=== PATIENT | female | born 1995 | race Two or more races ===

== ENCOUNTER → 2019-01-18 | Outpatient (CLI) | payer OTHER ==
[~2019-01-18] MED LIST: OMEP20TA63 PO
--- NOTE | 2019-01-18 23:47 | PAIN ---
DATE OF SERVICE: 01/18/2019 INITIAL CONSULTATION FOR PAIN CLINIC CHIEF COMPLAINT: Low back pain, bilateral lower extremity pain. HISTORY OF PRESENT ILLNESS: This is a 23-year-old female who presents with history of pain in the low back and into the posterior gluteus and hips for several years. She fell down some stairs many years ago, she reports about 6 or 8 years ago, has had pain ever since and now worse with walking, standing, change in positions, especially with standing and walking more than about 10-15 minutes. She has to stop and sit down, which does not always decrease the pain. The patient reports that when she is sitting for more than 15-20 minutes, it does increase the pain as well across the low back, but essentially right equal to left. She leans forward a lot, which does decrease the pain with forward flexion, but otherwise is waking her from sleep at least 5 or 6 times at night, right equal to left with lying on one side or the other. It does not affect her bowel or bladder control, but does affect her ability to walk fairly significantly for about 10-15 minutes all that she can manage before stopping to sit and rest. The patient reports the pain is constant, sharp, throbbing, shooting across the low back, cramping and aching, radiating into the posterior gluteus, posterior thighs, also into the groins at times. The patient has tried hydrocodone as well as a trigger shot injection, which did not decrease the pain significantly either one of these. The patient has had some chiropractic treatment in 2018, but nothing since that time. No formal physical therapies or other modalities. She has been doing some stretching and strengthening exercises on her own anything more than 10-15 minutes; however, causes the pain to increase. She has been trying to work out, even doing pushups is difficult for her back and she has had some knee problems and hip pain with the exercises as well. The patient rates her disability rate from 0-10, 10 being the worst as 7 with family and home responsibilities; 10 with recreation; 9 with social activity, occupation and sexual behavior; 5 with self-care and 0 with life support activities. The patient reports no loss of motor function with significant fatigability of both the lower extremities with walking again greater than 10-15 minutes. PAST MEDICAL HISTORY: Significant for gastritis, otherwise no major medical conditions except for the low back pain. PREVIOUS SURGERY: Include LASIK procedure in 2018. No other surgeries. CURRENT MEDICATIONS: Include Prilosec 20 mg daily. ALLERGIES: The patient has no known drug allergies. FAMILY HISTORY: Significant for no major medical problems or conditions that she is aware of. SOCIAL HISTORY: The patient does not drink alcohol, does not smoke, does not use any illegal, illicit or recreational drugs. 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 REVIEW OF SYSTEMS: The patient's review of systems is positive for those items mentioned in history of present illness. All systems reviewed and otherwise negative. It is complete, full and well documented on the patient's chart. PHYSICAL EXAMINATION: VITAL SIGNS: Blood pressure is 112/65, pulse 83, respirations 16, temperature is 98.6 degrees Fahrenheit, height is 5 feet 3 inches, weight is 157 pounds. GENERAL: The patient is awake, alert, oriented, appropriate, very pleasant demeanor. HEENT: Head shows normocephalic, atraumatic. Extraocular muscles are intact and symmetrical. Oral cavity: Mucous membranes moist and pink. Dentition is intact. NECK: Shows anterior throat supple without palpable lymphadenopathy noted. Swallow reflex symmetrical. CHEST: Shows normal on inspection. Breath sounds clear to auscultation bilaterally. HEART: Shows S1, S2 clear. No murmurs auscultated. ABDOMEN: Soft, nontender, nondistended. No palpable organomegaly is noted. No rebound or guarding demonstrated. BACK: The patient's back shows spine grossly in the midline, normal-appearing cervical lordotic curvature, thoracic kyphotic curvature and lumbar lordotic curvature. Lumbar paraspinous muscle shows symmetrical on inspection; with palpation shows some moderate tenderness in the low lumbar distribution to moderate to significant tenderness in the lower lumbar distribution bilaterally, equal right and left, very firm musculature, but without specific trigger points, without atrophy or hypertrophy. The patient has no tenderness over the sacrum or sacroiliac regions as well as the spinous processes with rotational motion; however, the patient does report pain with ____ greater than 10 degrees, right and left lateral rotation equally as well as significant pain with extension and axial loading of the low back, decreased with forward flexion which was performed to 45 degrees without significant difficulty or pain. EXTREMITIES: Lower extremities show deep tendon reflexes at 2+ in the patellar and 1+ tendo calcaneus tendons. Motor exam is strong with 5/5 dorsiflexion, extension, quadriceps and hamstring flexion and intact. Peripheral pulses are 1+ posterior tibia and dorsalis pedis pulses. No peripheral edema is noted. Straight leg raise noted to be negative for reproduction of radicular symptoms bilaterally. Gaenslen's and Fabian's maneuvers are negative bilaterally as well. The patient is able to stand, stand on her toes without significant difficulty or loss of balance, walks with a normal appearing gait for short distance in the office today, not using any assistive devices to ambulate. SKIN: Warm and dry, good turgor. No edema. No sores, rashes or bruising. IMPRESSION: 1. This is a 23-year-old female with 6-8 year history of increasing low back pain with some radicular qualities in the lower extremities posteriorly bilaterally, also with some component of the facet syndrome with spondylosis and extension and the axial loading of the lumbar spine. 2. The patient has had no diagnostic procedures performed at this point by her report and no record of any lumbar diagnostics performed with the patient on referral. PLAN: We will obtain MRI scan of the lumbar spine to better differentiate any potential pathology that may be increasing. The patient reports history of pars fractures in the past as well as degenerative disk disease in the past. Once the MRI scan is obtained, we will formulate a plan of treatment at that time. We will order the MRI scan today. Once this is obtained, we will proceed at that point to see the patient back once MRI scan is completed. DIONE RIBEIRO MD DR: DOTTIE/austin JOB#: [id number] / [id number]
== END | disposition home or self-care (01) ==
LOC: PNCL 11:08
PROVIDERS: ATTEND Anesthesiology
DX: M47.896 Other spondylosis, lumbar region (principal); M79.604 Pain in right leg; M79.605 Pain in left leg
CPT/HCPCS: G0463

== ENCOUNTER → 2019-01-30 | Outpatient (CLI) | payer OTHER ==
--- NOTE | 2019-01-30 16:37 | KCIC ---
EXAM: Lumbar spine MRI without contrast. HISTORY: Pain. TECHNIQUE: Multiplanar, multisequence magnetic resonance imaging of the lumbar spine was performed without contrast. COMPARISON: None. FINDINGS: There is grade 1 anterolisthesis of L5 on S1, measuring 5 mm. There are associated pars interarticular is defects at this level. There is 3 mm retrolisthesis of L4 and L5. There is disc desiccation and endplate remodeling at L4-L5 and L5-S1. There is no acute or subacute fracture. There is no suspicious osseous lesion. The conus terminates at T12-L1. At L1-L2, L2-L3 and L3-L4, there is no stenosis. There is a 6 mm posterior left facet joint synovial cyst at L3-L4. At L4-L5, there is a shallow broad-based posterior central disc protrusion and annular tear superimposed on a minimal disc bulge and endplate remodeling. There is no stenosis. At L5-S1, there is a shallow posterior central disc protrusion and annular tear superimposed on a minimal disc bulge and endplate remodeling. There is grade 1 anterolisthesis with pars defects. There is minimal left greater than right foraminal stenosis. There is a tiny posterior right facet joint synovial cyst or degenerative subchondral cyst. IMPRESSION: 1. Grade 1 anterolisthesis with associated pars defects at L5-S1. The combination of this finding and a shallow central disc protrusion and annular tear superimposed on a disc bulge and endplate remodeling results in minimal left greater than right foraminal stenosis. 2. Shallow broad-based posterior central disc protrusion and annular tear superimposed on a minimal disc bulge and endplate remodeling at L4-L5, without significant stenosis. Electronically signed by: Kristen Rodriguez MD (01/30/2019 4:34 PM) [place] [id number]
== END | disposition home or self-care (01) ==
LOC: KCIC MRI 15:21
PROVIDERS: ATTEND Anesthesiology
DX: M51.36 Other intervertebral disc degeneration, lumbar region (principal); M48.061 Spinal stenosis, lumbar region without neurogenic claudication
CPT/HCPCS: 72148

== ENCOUNTER → 2019-02-08 | Outpatient (CLI) | payer OTHER ==
[~2019-02-08] MED LIST changes: +IOHEXOL 180 MG/ML 10 ML VIAL. ONE; +methylPREDNISolone ACETATE 40 MG/ML VIAL. ONE; +methylPREDNISolone ACETATE 80 MG/ML VIAL. ONE
--- NOTE | 2019-02-09 02:41 | PAIN ---
DATE OF SERVICE: 02/08/2019 DIAGNOSES: Low back pain with lumbar radiculopathy and lumbar spondylosis. HISTORY OF PRESENT ILLNESS: The patient is a 23-year-old female who returns for followup status post initial evaluation and MRI scan showing degenerative disk with central disk protrusion at L4-L5 and L5-S1 with an annular tear at the L5-S1 level. The patient reports still significant pain in the low back radiating to the left lower extremity, mostly in the posterior gluteus, posterior thigh, the lateral anterior thigh as well in the left greater than right. The patient reports it is worse with standing, walking, changing positions, better with sitting or lying down. It has been awakening her from sleep about every 4-5 hours, especially if she lays on her left side, but some pain in the right side as well. The patient reports pain is radiating, constant, tingling, aching, dull, tight, shooting, on and off in intensity. The patient reports it is 7 on a scale of 10 at its worst, 5 on average, 2 at its least and is a 5 today. The patient reports no new motor or sensory deficits, no new bowel or bladder incontinence or other complaints. PHYSICAL EXAMINATION: VITAL SIGNS: The patient's blood pressure 123/61, pulse 77, respirations are 18, temperature is 98.1 degrees Fahrenheit. Height is 5 feet 3 inches, weighs 154 pounds. GENERAL: The patient is awake, alert, oriented, appropriate, very pleasant demeanor. HEENT: Shows normocephalic, atraumatic. Extraocular movements are intact and symmetrical. Oral cavity: Mucous membranes moist and pink. Dentition is intact. NECK: Shows anterior throat supple without palpable lymphadenopathy noted. Swallow reflex symmetrical. CHEST: Shows normal on inspection. Breath sounds are clear to auscultation bilaterally. HEART: Shows S1, S2 clear. No murmurs auscultated. ABDOMEN: Soft, nontender, nondistended. No palpable organomegaly is noted. No rebound or guarding demonstrated. BACK: Shows spine grossly in the midline. Normal appearing thoracic kyphosis and lumbar lordotic curvature. Lumbar paraspinous muscle shows symmetrical on inspection. On palpation shows some moderate tenderness diffusely, but only diffusely without radiation. EXTREMITIES: Lower extremities show deep tendon reflexes at 2+ in patella, 1+ tendo calcaneus tendons. Motor exam is strong with 5/5 dorsiflexion, extension as well as quadriceps and hamstring flexion. Peripheral pulses are 1+ posterior tibia. No peripheral edema is noted bilaterally. Options were discussed with the patient. The patient's old chart was reviewed as her current medication regimen updated. Current review of systems is updated today as well. We will proceed with the lumbar epidural steroid injection today with fluoroscopic guidance. Risks were again discussed including, but not limited to bleeding, infection, possibility of epidural hematoma, subsequent neurologic compromise, dural puncture, headaches, spinal cord and/or nerve damage, side effects of steroid medication and poor results regarding pain control. The patient understands and wished to proceed. The patient will return to the clinic in approximately 2 weeks for followup, was counseled on return appointment, activity level and side effects to be aware of. DIAGNOSES: Low back pain with lumbar radiculopathy and lumbar spondylosis. PROCEDURE: Lumbar epidural steroid injection, translaminar approach L5-S1 level using C-arm fluoroscopic guidance under sterile prep and drape using local anesthetic. MEDICATION INJECTED: A total of 120 mg Depo-Medrol plus 10 mL of preservative-free normal saline and 2 mL of Isovue for contrast. CONDITION AT DISCHARGE: Stable. The patient tolerated the procedure well, had no complications. DIONE RIBEIRO MD DR: DOTTIE/austin JOB#: [id number] / [id number]
== END | disposition home or self-care (01) ==
LOC: PNCL 09:04
PROVIDERS: ATTEND Anesthesiology
DX: M47.816 Spondylosis without myelopathy or radiculopathy, lumbar region (principal)
CPT/HCPCS: 62323; J1030; J1040; Q9965

== ENCOUNTER → 2019-03-22 | Outpatient (CLI) | payer OTHER ==
--- NOTE | 2019-03-22 20:57 | PAIN ---
DATE OF SERVICE: 03/22/2019 DIAGNOSES: Low back pain with lumbar radiculopathy and lumbar spondylosis. HISTORY OF PRESENT ILLNESS: The patient is a 23-year-old female who returns for followup status post lumbar epidural steroid injection x 1 with about a 70% improvement after the first injection. The patient reports she did very well, but the pain is returning now in the low back and the bilateral lower extremities, left slightly greater than right in the posterior gluteus, posterior thigh, posterior calf, but only intermittent and complaint is low back pain. The patient reports it is worse with walking, standing, change in positions, better with sitting or lying down, does not awaken her from sleep very often, but some nights, it will every 2 hours. The patient reports no new motor or sensory deficits, no new bowel or bladder incontinence or other complaints. Initially, she was increasing her distance walking, doing work activities activities as well as household activities with greater ease and comfort. Now, the pain is returning and rates an 8 on a scale of 10 at its worst, 6 on average and a 4 at its least over the past week and is a 4 today. The patient reports it is aching, sharp, tight, becoming more constant at times, has been on and off in intensity and again worse in the low back and the legs. PHYSICAL EXAMINATION: VITAL SIGNS: Today, the patient's blood pressure 117/69, pulse 76, respirations 18, temperature 97.7 degrees Fahrenheit, height 5 feet 6 inches, weight 152 pounds. GENERAL: The patient is awake, alert, oriented, appropriate, very pleasant demeanor. HEENT: Head is normocephalic, atraumatic. Extraocular muscles are intact and symmetrical. Oral cavity: Mucous membranes are moist and pink. Dentition is intact. NECK: Shows anterior throat supple without palpable lymphadenopathy noted. Swallow reflex is symmetrical. CHEST: Shows normal on inspection. Breath sounds clear to auscultation bilaterally. HEART: Shows S1, S2 clear. No murmurs auscultated. ABDOMEN: Soft, nontender, nondistended. No palpable organomegaly is noted. No rebound or guarding demonstrated. BACK: Shows spine grossly in the midline. Normal appearing thoracic kyphosis and lumbar lordotic curvature. Lumbar paraspinous musculature shows symmetrical on inspection, on palpation shows some moderate tenderness diffusely, but only in the low lumbar distribution without radiation. No atrophy, hypertrophy. No asymmetry. The patient has good rotational motion of lumbar spine both laterally as well as extension and flexion without significant difficulty or pain reported. EXTREMITIES: Lower extremities show deep tendon reflexes 2+ in the patellar, 1+ tendo-calcaneus tendons. Motor exam is strong with 5/5 dorsiflexion, extension, quadriceps and hamstring flexion is symmetrical. Peripheral pulses are 1+ posterior tibial. No peripheral edema is noted bilaterally. Options were discussed with the patient. The patient's old chart was reviewed as her current medication regimen and updated. Current review of systems is updated today as well. We will proceed with a second in a series of lumbar epidural steroid injection today with fluoroscopic guidance. Risks were again discussed including, but not limited to bleeding, infection, possibility of epidural hematoma, subsequent neurologic compromise, dural puncture, headaches, spinal cord and/or nerve damage, side effects of steroid medication and poor results regarding pain control. The patient understands and wished to proceed. The patient will return to clinic in approximately 2 weeks for followup, was counseled as to return appointment, activity level and side effects to be aware of. DIAGNOSES: Lumbar radiculopathy with lumbar spondylosis and low back pain. PROCEDURE: Lumbar epidural steroid injection, translaminar approach, L5-S1 level using C-arm fluoroscopic guidance under sterile prep and drape using local anesthetic. MEDICATIONS INJECTED: A total of 120 mg Depo-Medrol plus 10 mL of preservative-free normal saline and 2 mL of contrast. CONDITION AT DISCHARGE: Stable. The patient tolerated the procedure well, had no complications. DIONE RIBEIRO MD DR: DOTTIE/austin JOB#: [id number] / [id number]
== END | disposition home or self-care (01) ==
LOC: PNCL 09:25
PROVIDERS: ATTEND Anesthesiology
DX: M47.26 Other spondylosis with radiculopathy, lumbar region (principal)
CPT/HCPCS: 62323; J1030; J1040; Q9965

== ENCOUNTER → 2019-04-19 | Outpatient (CLI) | payer OTHER ==
[~2019-04-19] MED LIST changes: +LIDOCAINE 1% PF 2 ML VIAL. ONE
--- NOTE | 2019-04-19 10:36 | PAIN ---
DATE OF SERVICE: 04/19/2019 PROGRESS NOTE FOR PAIN CLINIC DIAGNOSIS: Lumbar radiculopathy with lumbar spondylosis and low back pain. HISTORY OF PRESENT ILLNESS: The patient is a 23-year-old female who returns for followup status post lumbar epidural steroid injections x 2. The patient reports still having some significant pain, but about 20% improvement overall with about 70% improvement. She has been waiting for preauthorization for her third injection. She has obtained that now and would like to proceed. The patient reports still pain in the low back and the bilateral lower extremities, left greater than right, worse with walking, standing, changing positions, better with sitting or lying down. The patient reports her pain is at an 8 on a scale of 10 at its worst in the last week, 6 on average, 4 at its least and is a 4 today, becoming radiating, aching, dull, tight, shooting into the leg and becoming more constant with walking, standing and weightbearing. The patient reports it awakens her from sleep very infrequently, very much more comfortable lying down or sitting down. The patient reports no new motor or sensory deficits, no new bowel or bladder incontinence or other complaints. PHYSICAL EXAMINATION: VITAL SIGNS: The patient's blood pressure is 113/59, pulse 75, respirations are 18, temperature 98.4 degrees Fahrenheit, height is 5 feet 6 inches and weighs 155 pounds. GENERAL: The patient is awake, alert, oriented, appropriate, very pleasant demeanor. HEENT: Head shows normocephalic and atraumatic. Extraocular movements are intact and symmetrical. Oral cavity: Mucous membranes are moist and pink. Dentition is intact. NECK: Shows anterior throat is supple without palpable lymphadenopathy noted. Swallow reflex is symmetrical. CHEST: Shows normal with inspection. Breath sounds are clear to auscultation bilaterally. HEART: Shows S1, S2 clear. No murmurs are auscultated. ABDOMEN: Soft, nontender and nondistended. BACK: Shows spine grossly in the midline. Normal appearing thoracic kyphosis and lumbar lordotic curvature. Lumbar paraspinous muscle shows symmetrical on inspection. On palpation shows some moderate tenderness diffusely bilaterally, but only diffusely without radiation. The patient has good rotational motion of the lumbar spine both laterally as well as extension and flexion without significant difficulty. EXTREMITIES: Lower extremities show deep tendon reflexes 2+ in the patellar and 1+ tendo calcaneus tendons. Motor exam is strong with 5/5 dorsiflexion, extension, quadriceps and hamstring flexion. Peripheral pulses are 1+ posterior tibial. Options were discussed with the patient. The patient's old chart was reviewed as was her current medication regimen updated. Current review of systems updated today as well. We will proceed with a third in the series of lumbar epidural steroid injection today with fluoroscopic guidance. Risks were again discussed including, but not limited to bleeding, infection, possibility of epidural hematoma, subsequent neurological compromise, dural puncture, headache, spinal cord and/or nerve damage, side effects of steroid medication and poor results regarding pain control. The patient understands and wished to proceed. The patient will return to the clinic in approximately 2 weeks for followup, was counseled as to return appointment, activity level and side effects to be aware of. DIAGNOSIS: Lumbar radiculopathy with lumbar spondylosis and low back pain. PROCEDURE: Lumbar epidural steroid injection, translaminar approach at the L5-S1 level using C-arm fluoroscopic guidance under sterile prep and drape using local anesthetic. MEDICATION INJECTED: A total of 120 mg Depo-Medrol plus 10 mL of preservative free normal saline and 2 mL of contrast. CONDITION AT DISCHARGE: Stable. The patient tolerated the procedure well and had no complications. DIONE RIBEIRO MD DR: DOTTIE/austin JOB#: [id number] / [id number]
== END ==
LOC: PNCL 07:45
PROVIDERS: ATTEND Anesthesiology
DX: M51.16 Intervertebral disc disorders with radiculopathy, lumbar region (principal); M47.816 Spondylosis without myelopathy or radiculopathy, lumbar region
CPT/HCPCS: 62323; J1030; J1040; Q9965